=== PATIENT | male | born 1970 | race Caucasian/White ===

== ENCOUNTER 2019-02-02 19:17 | Observation (INO) ==
[2019-02-02] MEDS ORDERED: hydrALAZINE 20 MG/1 ML VIAL IV STA (20:08)
[2019-02-02] MEDS ORDERED: NITROGLYCERIN 2% OINT 1 INCH/GM PACK TOP STA (20:08)
[2019-02-02] MEDS ORDERED: ALBUTEROL/IPRATROPIUM 3 ML NEB RESP TX STA (20:08)
[2019-02-02 20:50] LABS: Basophils # 0.1 10*3/uL (0.0-0.2); Eosinophils # 0.2 10*3/uL (0.0-0.87); Eosinophils % 3.1 % (0.00-10.9); Hematocrit 30.4 VOL% (42.0-52.0); Hemoglobin 9.7 GM/DL (14.0-18.0); Immature Granulocytes % 0.4 %; Immature Granulocytes Absolute 0.02 #; Lymphocytes # 1.2 10*3/uL (1.4-4.0); Lymphocytes % 23.5 % (21.2-54.2); Mean Corpuscular HGB Conc 31.9 GM/DL (32-36); Mean Corpuscular Volume 93.8 FL (87-102); Mean Platelet Volume 12.1 FL (9.6-12.0); Monocytes % 11.8 % (1.7-12.7); Neutrophils % 60.2 % (38.7-73.9); Platelet Count 166 T/CUMM (130-400); Red Blood Count 3.24 MC/CUMM (3.8-5.5); Red Cell Distribution Width 16.7 % (9.3-17.3); White Blood Count 5.1 T/CUMM (4-12)
[2019-02-02 21:00] LABS: INR 1.1; PT Patient Result 11.6 SECS (9.6-12.2)
[2019-02-02 21:09] LABS: ABG Base Excess 6.5 MMOL/L (-2.5-2.5); ABG HCO3 28.3 MMOL/L (20-26); ABG PH 7.579 (7.35-7.45); ABG PO2 103.4 MM HG (80-95); ABG TCO2 29.3 MMOL/L (23-27); Allen Test Positive; Pt O2 Delivery Device Room Air
[2019-02-02 21:12] LABS: Albumin 3.3 G/DL (3.4-5.0); Bilirubin,Total 0.8 MG/DL (0.2-1.0); Osmolality,Calculated 288.8 MOS/KG (273-304); Total Protein 6.2 G/DL (6.4-8.3)
[2019-02-02] MEDS ORDERED: LABETALOL 20 MG/4 ML SYRINGE IV STA (22:32)
[2019-02-02] MEDS ORDERED: LABETALOL 20 MG/4 ML SYRINGE IV ONE (22:33)
[2019-02-02] MEDS ORDERED: ACETAMINOPHEN 325 MG TABLET PO PRN (23:56)
[2019-02-02] MEDS ORDERED: ONDANSETRON 4 MG/2 ML VIAL IV PRN (23:56)
[2019-02-02] MEDS ORDERED: DOCUSATE SODIUM 100 MG CAPSULE PO PRN (23:56)
[2019-02-03] MEDS ORDERED: hydrALAZINE 20 MG/1 ML VIAL IV PRN (00:46)
[2019-02-03] MEDS: TEMAZEPAM 15 MG CAPSULE PO SCH ×2 (02:25→21:57)
[2019-02-03] MEDS: PANTOPRAZOLE 40 MG TABLET PO SCH ×3 (02:25→21:58)
[2019-02-03 05:07] LABS: Calcium 9.1 MG/DL (8.5-10.1)
[2019-02-03 05:14] LABS: Basophils # 0.1 10*3/uL (0.0-0.2); Eosinophils # 0.2 10*3/uL (0.0-0.87); Eosinophils % 3.5 % (0.00-10.9); Hemoglobin 9.7 GM/DL (14.0-18.0); Immature Granulocytes Absolute 0.06 #; Lymphocytes # 1.3 10*3/uL (1.4-4.0); Lymphocytes % 21.1 % (21.2-54.2); Mean Corpuscular HGB Conc 32.3 GM/DL (32-36); Mean Corpuscular Volume 93.8 FL (87-102); Mean Platelet Volume 12.3 FL (9.6-12.0); Monocytes % 9.1 % (1.7-12.7); Neutrophils % 64.3 % (38.7-73.9); Platelet Count 181 T/CUMM (130-400); Red Cell Distribution Width 16.8 % (9.3-17.3); White Blood Count 5.9 T/CUMM (4-12)
[2019-02-03] MEDS: CINACALCET 30 MG TABLET PO SCH ×2 (09:39→09:45)
[2019-02-03] MEDS: SEVELAMER CARBONATE 800 MG TABLET PO SCH ×4 (09:39→17:11)
[2019-02-03] MEDS: carvediloL 25 MG TABLET PO SCH ×2 (09:39→14:18)
[2019-02-03] MEDS: LISINOPRIL 10 MG TABLET PO SCH (14:18)
[2019-02-04 08:08] VITALS: BP 161/96
[2019-02-04] MEDS: carvediloL 25 MG TABLET PO SCH (08:27)
[2019-02-04] MEDS: PANTOPRAZOLE 40 MG TABLET PO SCH (08:27)
[2019-02-04] MEDS: SEVELAMER CARBONATE 800 MG TABLET PO SCH ×2 (08:27→14:00)
[2019-02-04] MEDS: CINACALCET 30 MG TABLET PO SCH (08:28)
[2019-02-04] MEDS: LISINOPRIL 10 MG TABLET PO SCH (14:00)
== END 2019-02-04 14:15 | disposition home or self-care (01) ==
LOC: N.EDINP 19:17 → N.ED 19:17 → SUATTDRO 23:55 → N.2W 02-03 00:14
PROVIDERS: ADMIT Internal Medicine; ATTEND Internal Medicine